=== PATIENT | male | born 1950 | race Caucasian/White ===

== ENCOUNTER 2016-05-11 12:34 | Day surgery (SDC) | payer OTHER ==
[~2016-05-11] VITALS: Ht 180.3 cm; Wt 77.6 kg
[~2016-05-11 12:34] MED LIST: AMBIEN DPS5 MG PO; ASPIRIN325 MG PO; COLACE-DPS100 MG PO; DILAUDID2 MG PO; FLONASE 0.05% D16 GM NS; FOLVITE-DPS1 MG PO; FUNGI NAIL TP; HUMALOG100 UNIT/1 SQ; IMODIUM DPS2 MG PO; LIPITOR DPS20 MG PO; SYNTHROID112 MCG PO; THORAZINE-DPS25 MG PO; TYLENOL EXTRA500 M1 PO; XANAX DPS0.5 MG PO
[2016-09-17] MEDS ORDERED: ZOFRAN4 MG PO (13:19)
[2016-09-17] MEDS ORDERED: NITROSTAT0.4 MG PO (13:20)
[2016-09-17] MEDS ORDERED: SYNTHROID200 MCG PO (13:24)
[2016-09-17] MEDS ORDERED: DURAGESIC1 EAC1 TD (13:24)
[2016-09-17] MEDS ORDERED: LEXAPRO DPS10 MG PO (13:24)
[2016-09-17] MEDS ORDERED: DECADRON-DPS4 MG PO (13:25)
[2016-09-17] MEDS ORDERED: MOVANTIK25 MG PO (13:25)
[2016-09-17] MEDS ORDERED: PEPCID DPS20 MG PO (13:25)
[2016-09-17] MEDS ORDERED: DILAUDID4 MG PO (13:26)
[2016-09-17] MEDS ORDERED: MAALOX DPS30 ML PO (13:26)
[2016-09-17] MEDS ORDERED: ROXANOL 20MG20 MG/ML PO ×2 (13:26→13:31)
[2016-09-17] MEDS ORDERED: FLOMAX DPS0.4 MG PO (13:27)
[2016-09-17] MEDS ORDERED: MIRALAX PACKET17 GM PO (13:27)
[2016-09-17] MEDS ORDERED: TYLENOL DPS325 MG PO (13:27)
[2016-09-17] MEDS ORDERED: LORAZEPAM I2 MG/1 ML PO (13:28)
[2016-09-17] MEDS ORDERED: ISOPTO ATROPINE15 ML PO (13:29)
[2016-09-17] MEDS ORDERED: DUONEB DPS3 ML IH (13:29)
[2016-09-17] MEDS ORDERED: PHENERGAN SUPP25 MG PR (13:29)
[2016-09-17] MEDS ORDERED: DULCOLAX-DPS10 MG PR (13:31)
[2016-09-17] MEDS ORDERED: HALDOL 2 MG/ML PO (13:31)
[2016-09-17] MEDS ORDERED: SENNA-S TABLET1 EACH PO (13:32)
[2016-09-17] MEDS ORDERED: SOAP SUDS ENEMA PR (13:33)
== END 2016-05-11 15:00 | disposition home or self-care (01) ==
LOC: RAD.S 12:34 → EDSTATUS 14:00 → RAD.S 14:00
PROC: 3E0S33Z Introduction of Anti-inflammatory into Epidural Space, Percutaneous Approach (ICD-10-PCS; principal; 2016-05-11)
DX: G89.29 Other chronic pain (principal); C34.11 Malignant neoplasm of upper lobe, right bronchus or lung; C79.51 Secondary malignant neoplasm of bone; I10 Essential (primary) hypertension; Z87.891 Personal history of nicotine dependence; Z79.4 Long term (current) use of insulin; Z79.82 Long term (current) use of aspirin; Z79.899 Other long term (current) drug therapy; Z88.8 Allergy status to other drugs, medicaments and biological substances

== ENCOUNTER 2016-07-21 05:44 | Emergency (ER) | payer OTHER ==
--- NOTE | 2016-08-07 15:00 | ER ---
ADMIT: 07/21/2016 RM/LOC: ER [facility] MR#: [id number] [facility] [address] [place], [place] [id number] ERIKA MORALES [address] [place] [address] Emergency Room Report SEX: M AGE: 65 : 1950 DATE: 07/21/2016 ADDENDUM: A 65-year-old white male coming in with chest pain, initially, seen by Dr. Schilling. I refer you to his T-sheet. CTA was performed, which shows no clots, but continued lung cancer. Lab essentially negative or at least stable. He has an appointment with Dr. Mast tomorrow, he is the oncologist. His EKG, troponin were all negative as well. The pain is gone, he has pain medicine at home. CONDITION ON DISCHARGE: Serious, but stable. Ajay Riggs MD/ leslie JOB #: [id number] CC: Fernando Salazar MD, Attending Physician Gera Mccauley MD, Family Physician
[2016-09-17] MEDS ORDERED: ZOFRAN4 MG PO (13:19)
[2016-09-17] MEDS ORDERED: NITROSTAT0.4 MG PO (13:20)
[2016-09-17] MEDS ORDERED: DURAGESIC1 EAC1 TD (13:24)
[2016-09-17] MEDS ORDERED: SYNTHROID200 MCG PO (13:24)
[2016-09-17] MEDS ORDERED: LEXAPRO DPS10 MG PO (13:24)
[2016-09-17] MEDS ORDERED: PEPCID DPS20 MG PO (13:25)
[2016-09-17] MEDS ORDERED: MOVANTIK25 MG PO (13:25)
[2016-09-17] MEDS ORDERED: DECADRON-DPS4 MG PO (13:25)
[2016-09-17] MEDS ORDERED: DILAUDID4 MG PO (13:26)
[2016-09-17] MEDS ORDERED: MAALOX DPS30 ML PO (13:26)
[2016-09-17] MEDS ORDERED: ROXANOL 20MG20 MG/ML PO ×2 (13:26→13:31)
[2016-09-17] MEDS ORDERED: FLOMAX DPS0.4 MG PO (13:27)
[2016-09-17] MEDS ORDERED: TYLENOL DPS325 MG PO (13:27)
[2016-09-17] MEDS ORDERED: MIRALAX PACKET17 GM PO (13:27)
[2016-09-17] MEDS ORDERED: LORAZEPAM I2 MG/1 ML PO (13:28)
[2016-09-17] MEDS ORDERED: ISOPTO ATROPINE15 ML PO (13:29)
[2016-09-17] MEDS ORDERED: PHENERGAN SUPP25 MG PR (13:29)
[2016-09-17] MEDS ORDERED: DUONEB DPS3 ML IH (13:29)
[2016-09-17] MEDS ORDERED: DULCOLAX-DPS10 MG PR (13:31)
[2016-09-17] MEDS ORDERED: HALDOL 2 MG/ML PO (13:31)
[2016-09-17] MEDS ORDERED: SENNA-S TABLET1 EACH PO (13:32)
[2016-09-17] MEDS ORDERED: SOAP SUDS ENEMA PR (13:33)
== END 2016-07-21 08:14 | disposition home or self-care (01) ==
LOC: ER 05:44
DX: C34.90 Malignant neoplasm of unspecified part of unspecified bronchus or lung (principal); I25.10 Atherosclerotic heart disease of native coronary artery without angina pectoris; E78.5 Hyperlipidemia, unspecified; I10 Essential (primary) hypertension; E11.9 Type 2 diabetes mellitus without complications; E03.9 Hypothyroidism, unspecified; Z95.1 Presence of aortocoronary bypass graft; Z79.4 Long term (current) use of insulin; Z79.82 Long term (current) use of aspirin; Z79.899 Other long term (current) drug therapy